=== PATIENT | male | born 1985 | race African-American/Black ===

== ENCOUNTER 2023-09-15 14:03 | Emergency (ER) | payer OTHER, SELFPAY ==
[2023-09-15] MEDS ORDERED: Orphenadrine Citrate 60 MG/2 ML VIAL ONE (14:58)
[2023-09-15] MEDS ORDERED: Ketorolac Tromethamine 30 MG/ML VIAL ONE (14:58)
== END 2023-09-15 16:22 | disposition home or self-care (01) ==
LOC: CSHERS 14:03
DX: M62.838 Other muscle spasm (principal)
CPT/HCPCS: 70450; 72125; 96372; J1885; J2360